=== PATIENT | male | born 1985 | race Caucasian/White ===

== ENCOUNTER 2016-12-05 01:59 | Emergency (ER) | payer BC ==
[~2016-12-05] VITALS: Ht 215.9 cm; Wt 111.5 kg
[~2016-12-05 01:59] MED LIST: NAPROSYN500 MG PO; PREDNISONE20 MG PO; TRAMADOL HCL50 MG PO; VALIUM5 MG PO
[2016-12-05 03:39] LABS: CHLORIDE 111 mEq/L (99-109); POTASSIUM 3.9 mEq/L (3.7-5.4); SODIUM 144 mEq/L (136-147)
[2016-12-05 03:41] LABS: GLUCOSE 87 mg/dL (70-99)
[2016-12-05 03:42] LABS: ANION GAP 11 MEQ/L (2-14)
[2016-12-05 03:44] LABS: SERUM ETHYL ALCOHOL 206 mg/dL
[2016-12-05 03:45] LABS: GFR ESTIMATE (CALCULATED) > 59 mL/min/
[2016-12-05 03:46] LABS: UREA NITROGEN (BUN) 11 mg/dL (9-23)
[2016-12-05 04:10] LABS: EOSINOPHIL (%) 1.7 % (0-5); EOSINOPHIL COUNT 0.1 K/uL (0-0.3); HEMATOCRIT 40.1 % (38.0-50.0); IMMATURE GRANULOCYTE (%) 0.5 % (0.0-0.7); LYMPHOCYTE COUNT 1.6 K/uL (1.0-2.8); MCH 30.7 PG (29.0-34.0); MCHC 36.4 G/DL (30.0-36.0); MCV 84.2 FL (86-99); MEAN PLAT.VOLUME 9.8 uM^3 (9.0-12.4); MONOCYTE (%) 8.5 % (3-12); MONOCYTE COUNT 0.4 K/uL (0-0.8); NEUTROPHIL (%) 49.3 % (45-76); PLATELET COUNT 207 K/uL (156-360); RBC DIS.WIDTH-CV 12.5 % (11.8-14.6); RBC DIS.WIDTH-SD 38.1 % (39-53); RED BLOOD COUNT 4.76 M/uL (4.00-5.50); WHITE BLOOD COUNT 4.1 K/uL (4.1-10.2)
[2016-12-05 08:37] VITALS: BP 126/75
== END 2016-12-05 08:38 | disposition home or self-care (01) ==
LOC: EME 01:59
PROVIDERS: Emergency Medicine
DX: F10.129 Alcohol abuse with intoxication, unspecified (principal); Y90.7 Blood alcohol level of 200-239 mg/100 ml; F32.9 Major depressive disorder, single episode, unspecified; R45.851 Suicidal ideations; Z72.0 Tobacco use
CPT/HCPCS: 80048; 84439; 84443; 85025; 90837; 99281; 99284; G0480